=== PATIENT | male | born 1995 | race Caucasian/White ===

== ENCOUNTER 2017-06-29 18:59 | Emergency (ER) | payer OTHER ==
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
[2017-06-29] MEDS ORDERED: HYDROCODONE/ACETAMINOPHEN 5-325 MG TABLET PO ONE (20:43)
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
[2017-06-29 22:53] VITALS: BP 156/98
== END 2017-06-29 23:00 | disposition home or self-care (01) ==
LOC: ER 18:59
DX: S86.911A Strain of unspecified muscle(s) and tendon(s) at lower leg level, right leg, initial encounter (principal); S06.9X9A Unspecified intracranial injury with loss of consciousness of unspecified duration, initial encounter; V43.02XA Car driver injured in collision with other type car in nontraffic accident, initial encounter; R51 Headache; R11.0 Nausea; M25.579 Pain in unspecified ankle and joints of unspecified foot; M54.2 Cervicalgia; R03.0 Elevated blood-pressure reading, without diagnosis of hypertension
CPT/HCPCS: 70450; 72040; 72125; 99284